=== PATIENT | male | born 1995 | race African-American/Black ===

== ENCOUNTER 2022-08-15 08:00 | Outpatient (CLI) | payer OTHER ==
[2022-08-16 00:28] LABS: CHLAMYDIA TRACHOMATIS DNA NEGATIVE (NEGATIVE); NEISSERIA GONORRHOEAE DNA NEGATIVE (NEGATIVE)
== END 2022-08-15 23:59 | disposition home or self-care (01) ==
LOC: LAB.N 08:00
PROVIDERS: ATTEND Physician Assistant
DX: Z11.3 Encounter for screening for infections with a predominantly sexual mode of transmission (principal)
CPT/HCPCS: 87491; 87591; 87661

== ENCOUNTER 2023-12-07 08:23 | Outpatient (CLI) | payer OTHER ==
--- NOTE | 2023-12-07 13:48 | MRI Report ---
PROCEDURE: Knee RT WO INDICATIONS: R KNEE PAIN TECHNIQUE: Noncontrast sagittal PD fast spin echo and T2 fast spin echo with fat saturation, sagittal 3-D gradie nt sequence with fat saturation; coronal T1 spin echo and PD fast spin echo with fat saturation, and axial PD fast spin echo with fat saturation through the knee. COMPARISON: None FINDINGS: Image quality: Diagnostic Menisci Medial: Intact. Meniscocapusular junction maintained. Lateral: Intact. Meniscopopliteal fascicles maintained. Cruciate ligaments: Intact Medial structures MCL: Mild periligamentous edema. No significant defect Pes anserine tendons: Intact Semimembranosus: Intact Lateral structures LCL: Mild to moderate edema surrounding the proximal LCL Biceps femoris: Intact IT band: Intact Popliteus tendon: Mild to moderate edema surrounding the tendon Anterior structures Extensor mechanism: There is a moderate focal tear and tendinopathy at the patellar tendinous origin. Fat pads: Mild to moderate adjacent edema in the Hoffa's fat pad Medial retinaculum: Intact. Trochlea: Unremarkable morphology. Bone and joint Bones: Mild edema of the inferior patellar pole. Cartilage: No significant defect Joint space: Trace joint effusion Marshall's cyst: Tiny Marshall's cyst Soft tissues: No significant vascular or other soft tissue pathology. IMPRESSION: Moderate focal tendinopathy at the origin of the patellar tendon. There is adjacent edema in Hoffa's fat pad and inferior patellar pole. Possible sprains of the MCL and LCL. Tenosynovitis of the popliteus. Trace joint effusion and tiny Marshall's cyst. Intact cruciate ligaments. No significant meniscal tear. Reviewed by: Behzad Sanderson MD on 12/07/2023 1:46 PM PDT Approved by: Behzad Sanderson MD on 12/07/2023 1:46 PM PDT Station ID: [id number]
== END 2023-12-07 08:24 | disposition home or self-care (01) ==
LOC: DI 08:23
DX: M67.961 Unspecified disorder of synovium and tendon, right lower leg (principal); M25.461 Effusion, right knee; M71.21 Synovial cyst of popliteal space [Baker], right knee; M65.9 Synovitis and tenosynovitis, unspecified